=== PATIENT | female | born 1965 | race Caucasian/White ===

== ENCOUNTER → 2016-11-30 | Outpatient (CLI) | payer OTHER ==
[~2016-11-30] MED LIST: ALEVE PO; AMITRIPTYLINE H50 MG PO; CIPRO PO; DIAZEPAM PO; PERCOCET; VITAL-D RX TABL1 TAB; ZANAFLEX4 M1 PO; ZOMIG ZMT5 MG/TAB PO
--- NOTE | ~2016-11-30 | US6 ---
[facility] A Service of [facility] RADIOLOGY TEXT RESULTS PATIENT: DEBRA CONKLIN LOCATION: [facility] : 69 UNIT #: [id number] AGE: [address]: Elaine Henry MD SEX: F ORDER DR: [id number] [facility] [address] [place], [place] [address] [id number] O MR#: [id number] Acc #: [id number] NAME: DEBRA CONKLIN : 1965 SEX: F STUDY DATE/TIME: 11/30/2016 10:08 UNIT: [facility] ROOM: STUDY DESCRIPTION: US Abdominal Limited Attending Physician: Elaine Henry M.D. Ordering Physician: Elaine Henry M.D. Primary Care Physician: Elaine Henry M.D. MEDICAL IMAGING REPORT This report is preliminary unless electronic signature is present EXAM Right upper quadrant ultrasound, 11/30/2016 HISTORY Abnormally elevated liver enzymes on 10/15/2016 FINDINGS The liver demonstrates an increase in echotexture with attenuation of the ultrasound beam characteristic of fatty infiltration. No cystic or solid mass lesions were seen in the liver. The intra and extrahepatic bile ducts are not dilated. The gallbladder is surgically absent as per patient history. The common duct measures 3.0 mm. The pancreas and right kidney are normal. IMPRESSION 1. Fatty infiltration of the liver. 2. Surgical absence of the gallbladder. Dictated by... Dalton Brewster M.D. THIS IS AN ELECTRONICALLY VERIFIED REPORT Dalton Brewster M.D. at 11/30/2016 4:58 PM José Miguel TD: 11/30/2016 14:35 JOB #: [id number] MEDICAL IMAGING REPORT COPY
== END | disposition home or self-care (01) ==
LOC: CWCC 09:44
DX: K76.0 Fatty (change of) liver, not elsewhere classified (principal); R94.5 Abnormal results of liver function studies; Z90.49 Acquired absence of other specified parts of digestive tract
CPT/HCPCS: 76705